=== PATIENT | female | born 1985 | race Caucasian/White ===

== ENCOUNTER 2019-04-28 13:28 | Emergency (ER) | payer OTHER ==
[~2019-04-28] VITALS: Wt 60.0 kg
[~2019-04-28 13:28] MED LIST: CLIN300C10 PO; DOXY-214 PO; HYDR-4011 PO; IBUP800T48 PO; MUPI22OI2 TOP; NAPR-985 PO
[2019-04-28 13:38] VITALS: BP 155/71; PULSE 99; RESP 18
[2019-04-28] MEDS ORDERED: KETOROLAC 30 MG INJ IM STA (16:07)
[2019-04-28] MEDS ORDERED: DIPHTH/TET/ACEL PERTUSS (ADULT) 0.5 ML VIAL IM* ONE (16:30)
== END 2019-04-28 16:50 | disposition home or self-care (01) ==
LOC: FTE 13:28
DX: S80.12XA Contusion of left lower leg, initial encounter (principal); F17.210 Nicotine dependence, cigarettes, uncomplicated; W20.8XXA Other cause of strike by thrown, projected or falling object, initial encounter; Y92.9 Unspecified place or not applicable; Z23 Encounter for immunization
CPT/HCPCS: 73590; 81025; 90471; 90715; 96372; J1885; Z7502

== ENCOUNTER 2019-06-08 16:15 | Emergency (ER) | payer OTHER ==
[~2019-06-08] VITALS: Ht 170.2 cm; Wt 56.0 kg
[2019-06-08 16:26] VITALS: BP 133/66; Ht 170.2 cm; Wt 56.0 kg
[2019-06-08] MEDS ORDERED: LIDOCAINE 1% (MPF) 5 ML VIAL INFIL ONE (18:30)
[2019-06-08] MEDS ORDERED: IBUPROFEN 800 MG TAB PO ONE (18:30)
[2019-06-08] MEDS ORDERED: PENICILLIN G BENZ 2.4 MIL UNIT SYG IM ONE (18:30)
[2019-06-08] MEDS ORDERED: AZITHROMYCIN 500 MG TAB PO ONE (18:30)
[2019-06-08] MEDS ORDERED: CEFTRIAXONE 250 MG INJ IM ONE (18:30)
[2019-06-08 19:10] VITALS: PULSE 75; RESP 18
== END 2019-06-08 19:11 | disposition home or self-care (01) ==
LOC: FTE 16:15
DX: L03.116 Cellulitis of left lower limb (principal); Z87.891 Personal history of nicotine dependence
CPT/HCPCS: 96372; J0561; J0696; Z7502; Z7610